=== PATIENT | female | born 1995 | race Caucasian/White ===

== ENCOUNTER → 2021-08-21 | Outpatient (CLI) | payer OTHER ==
[~2021-08-21] MED LIST: FERROUS SULFAT325 M2 PO
== END ==
LOC: RAD 13:45
DX: Z13.828 Encounter for screening for other musculoskeletal disorder (principal); M25.551 Pain in right hip; M41.86 Other forms of scoliosis, lumbar region
CPT/HCPCS: 72082; 73522